=== PATIENT | female | born 1975 | race African-American/Black ===

== ENCOUNTER → 2017-06-06 | Outpatient (CLI) | payer BC ==
--- NOTE | ~2017-06-06 | MR104 ---
[facility]. [facility] A Service of [facility] RADIOLOGY TEXT RESULTS PATIENT: JELENA LEONARD LOCATION: [facility] : 79 UNIT #: [id number] AGE: [address]: Brandon Lester MD SEX: F ORDER DR: [id number] [place] [id number] MR#: [id number] #: [id number] NAME: JELENA LEONARD : 1975 SEX: F STUDY DATE/TIME: 06/06/2017 10:48 UNIT: [facility] ROOM: STUDY DESCRIPTION: MR Knee Wo Contrast Rt Attending Physician: Brandon Lester M.D. Referring Physician: Brandon Lester M.D. Ordering Physician: Brandon Lester M.D. Primary Care Physician: Primary Care Physician No MRI CENTER REPORT This report is preliminary unless electronic signature is present. EXAM MRI right knee 06/06/2017 COMPARISON Bilateral knee radiographs 06/02/2017 and right knee radiographs 02/24/2011. HISTORY-order states right knee contusion, as well. History sheet states stepped out of truck awkwardly on 05/31/2017. Diffuse right knee pain for 6 days. History of right knee surgery 1993 and 1994 for torn ACL and cartilage surgery (not otherwise specified). There is moderate to large joint effusion without a popliteal cyst. Patellofemoral alignment and articular cartilage are normal. The quadriceps and patellar tendons are intact.. Complete ACL tear has a chronic appearance. PCL is intact.. There is a peripheral (red red zone) vertical longitudinal tear of the posterior horn of the lateral meniscus measuring at least 13 mm in length.. There is an underlying high-grade chondral injury of the posterior lateral tibial plateau just deep to the meniscus tear.. This includes a full-thickness chondral defect measuring only 6 x 5 mm (AP by transverse) probably with a small in situ cartilaginous fragment. There is underlying marrow edema/bone contusion of the posterolateral rim of the tibia and associated small nondisplaced fracture, probably superimposed on chronic pivot shift deformity. There is evidence of chronic pivot shift osseous injury of the lateral femoral notch without superimposed recent abnormality. No additional lateral compartment articular cartilage abnormality is noted. [facility] A Service of [facility] RADIOLOGY TEXT RESULTS PATIENT: JELENA LEONARD LOCATION: [facility] : 79 UNIT #: [id number] AGE: [address]: Brandon Lester MD SEX: F ORDER DR: The lateral collateral ligament complex and popliteus tendon are intact. No high-grade posterolateral corner complex injury is noted. Popliteus tendon is intact. There is a very diminutive medial meniscus involving the posterior two-thirds of the meniscus. The mid body is extruded. In the posterior horn, there is a small vertical tear. There is no displaced meniscal flap or fragment. Findings most suggestive of a partial medial meniscectomy. There is no bucket-handle fragment. There is a grade 1 MCL sprain proximally. There is a subcentimeter focus of high-grade chondromalacia with minimal underlying marrow edema of the posterolateral weightbearing medial femoral condyle favored to not be secondary to recent injury. There is no marrow lesion or sizeable loose body. IMPRESSION 1. 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 2. Vertical peripheral longitudinal tear in the posterior body and horn of the lateral meniscus with an underlying 6 x 5 mm recent -appearing high-grade chondral injury in posterolateral tibial plateau. 3. Bone contusion and/or small impaction nondisplaced fracture of the posterolateral rim of the tibia probably superimposed on old deformity. 4. Diminutive truncated medial meniscus favored to be secondary to partial medial meniscectomy. No displaced meniscal fragment is noted. There is a small vertical tear of the posterior horn segment. 5. Small zone of high-grade sub-centimeter chondromalacia of the medial femoral condyle is likely not due to recent injury. 6. Grade 1 MCL sprain. 7. [id number] effusion. Dictated by... Karissa Foley M.D. THIS IS AN ELECTRONICALLY VERIFIED REPORT Karissa Foley M.D. at 06/08/2017 10:31 AM Alexys/horace TD: 06/07/2017 13:58 JOB #: [id number] MRI CENTER REPORT Page 1 of 1
== END | disposition home or self-care (01) ==
LOC: SMRI 10:31
DX: S80.01XA Contusion of right knee, initial encounter (principal); M25.461 Effusion, right knee; S83.511A Sprain of anterior cruciate ligament of right knee, initial encounter; S83.281A Other tear of lateral meniscus, current injury, right knee, initial encounter; M94.261 Chondromalacia, right knee; S83.411A Sprain of medial collateral ligament of right knee, initial encounter
CPT/HCPCS: 73721